=== PATIENT | female | born 2000 | race Caucasian/White ===

== ENCOUNTER 2019-05-03 21:51 | Emergency (ER) | payer OTHER ==
[~2019-05-03] VITALS: Ht 157.5 cm; Wt 53.8 kg
[~2019-05-03 21:51] MED LIST: ACET500C5 PO
[2019-05-03 22:06] VITALS: Ht 157.5 cm; Wt 53.8 kg
[2019-05-03] MEDS ORDERED: ACETAMINOPHEN 500 MG TAB PO STA (23:54)
[2019-05-04] MEDS ORDERED: DIPHENHYDRAMINE 50 MG INJ IV ONE
[2019-05-04] MEDS ORDERED: SOD CHLORIDE 0.9% 1,000 ML IV ONE
[2019-05-04] MEDS ORDERED: METOCLOPRAMIDE 10 MG INJ IV ONE
[2019-05-04 02:27] VITALS: BP 117/55; PULSE 64; RESP 18
== END 2019-05-04 02:28 | disposition home or self-care (01) ==
LOC: FTE 21:51
DX: G43.919 Migraine, unspecified, intractable, without status migrainosus (principal)
CPT/HCPCS: 70450; 80053; 81003; 81025; 85025; 85610; 85730; 96374; 96375; 99285; J1200; J2765; J7030